=== PATIENT | female | born 1950 | race Two or more races ===

== ENCOUNTER → 2017-10-08 | Outpatient (CLI) | payer MEDICARE, MEDICAID | END | disposition home or self-care (01) | LOC: US 07:23 | PROVIDERS: ATTEND Internal Medicine Nephrology | DX: K76.89 Other specified diseases of liver (principal); K76.6 Portal hypertension | CPT/HCPCS: 76700 ==

== ENCOUNTER → 2018-07-06 | Outpatient (CLI) | payer MEDICARE, MEDICAID | END | disposition home or self-care (01) | LOC: US 06:43 | PROVIDERS: ATTEND Internal Medicine Nephrology | DX: N28.1 Cyst of kidney, acquired (principal); K74.60 Unspecified cirrhosis of liver; R16.1 Splenomegaly, not elsewhere classified; K76.6 Portal hypertension; M79.604 Pain in right leg | CPT/HCPCS: 76700; 93971 ==